=== PATIENT | male | born 1995 | race Caucasian/White ===

== ENCOUNTER 2023-09-15 16:39 | Emergency (ER) | payer MEDICAID ==
[~2023-09-15] VITALS: Ht 172.7 cm; Wt 81.0 kg
[2023-09-15] MEDS: levetiracetam inj 1,000 MG in normal saline 100ml IV soln 100 ML IV ONE (17:55)
[2023-09-15] MEDS: normal saline 1000ml 1,000 ML IV ONE (17:56)
[2023-09-15 18:29] LABS: BASOPHILS % (AUTO) 0.2 % (0-1); EOSINOPHILS % (AUTO) 0.3 % (0-6); HEMOGLOBIN 14.4 g/dl (14.0-17.9); LYMPHOCYTES % (AUTO) 11.1 % (21-51); MEAN CORPUSCULAR HEMOGLOBIN 31.1 PG (27.0-31.0); MEAN CORPUSCULAR HGB CONC 34.3 g/dL (33.0-36.5); MEAN CORPUSCULAR VOLUME 90.7 FL (78-98); MEAN PLATELET VOLUME 8.4 FL (7.4-10.4); MONOCYTES # (AUTO) 0.3 X10'3 (0-0.9); MONOCYTES % (AUTO) 3.9 % (2-12); NEUTROPHILS # (AUTO) 7.4 X10'3 (1.8-7.7); NEUTROPHILS % (AUTO) 84.5 % (42-75); PLATELET COUNT 187 X10'3 (140-440); RED BLOOD COUNT 4.63 X10'6 (4.70-6.10); WHITE BLOOD COUNT 8.8 X10'3 (4.5-11.0)
[2023-09-15 18:56] LABS: ALANINE AMINOTRANSFERASE 22 U/L (12-78); ALBUMIN 3.4 G/DL (3.4-5.0); ALBUMIN/GLOBULIN RATIO 1.2 (1.1-1.5); ALKALINE PHOSPHATASE 49 IU/L (46-116); ANION GAP 9 (8-16); ASPARTATE AMINO TRANSFERASE 14 U/L (10-37); BILIRUBIN,TOTAL 0.4 MG/DL (0.1-1.0); BLOOD UREA NITROGEN 14 MG/DL (7-18); BUN/CREATININE RATIO 13.6 (10.0-20.0); CALCIUM 8.2 MG/DL (8.5-10.1); CHLORIDE 111 MMOL/L (99-107); CREATININE 1.03 MG/DL (0.60-1.10); GLUCOSE 112 MG/DL (70-104); POTASSIUM 3.7 MMOL/L (3.5-5.1); SODIUM 148 MMOL/L (135-145); TOTAL CARBON DIOXIDE 27.7 MMOL/L (24-32); TOTAL PROTEIN 6.3 G/DL (6.4-8.2); eCRCL 103 ML/MIN; eGFR 86 ML/MIN
[2023-09-15 19:04] LABS: ETHANOL < 10 MG/DL (<10); MAGNESIUM 2.3 MG/DL (1.5-2.4); THYROID STIMULATING HORMONE 1.88 ulU/ml (0.34-4.50)
[2023-09-15 21:28] VITALS: BP 119/76; PULSE 87; RESP 13; TEMP 98.3; O2SAT 98
== END 2023-09-15 20:00 | disposition home or self-care (01) ==
LOC: ER 16:40
DX: R56.9 Unspecified convulsions (principal); F32.A Depression, unspecified; F12.10 Cannabis abuse, uncomplicated
CPT/HCPCS: 36415; 70450; 70486; 80053; 80320; 83735; 84443; 84484; 85025; 93005; 96365; 99285; J1953; J3490; J7030